=== PATIENT | female | born 1970 | race Caucasian/White ===

== ENCOUNTER 2017-11-21 06:09 | Emergency (ER) | payer OTHER ==
[~2017-11-21] VITALS: Ht 165.1 cm; Wt 81.8 kg
[2017-11-21 06:16] VITALS: BP 161/96
[2017-11-21] MEDS ORDERED: IBUPROFEN 600 MG TAB PO ONE (07:45)
[2017-11-21] MEDS ORDERED: TETANUS-DIPTH-ACEL PERTUSSIS 0.5ML SYRG IM ONE (07:45)
== END 2017-11-21 08:14 | disposition home or self-care (01) ==
LOC: ER 06:15
DX: S01.01XA Laceration without foreign body of scalp, initial encounter (principal); W20.8XXA Other cause of strike by thrown, projected or falling object, initial encounter; Y93.B9 Activity, other involving muscle strengthening exercises; Y92.39 Other specified sports and athletic area as the place of occurrence of the external cause; Y99.8 Other external cause status
CPT/HCPCS: 12001; 90471; 90715

== ENCOUNTER 2017-11-30 07:29 | Emergency (ER) | payer OTHER ==
[~2017-11-30] VITALS: Ht 167.6 cm; Wt 79.4 kg
[2017-11-30 07:45] VITALS: BP 152/80
== END 2017-11-30 08:01 | disposition home or self-care (01) ==
LOC: ER 07:31
DX: S01.01XD Laceration without foreign body of scalp, subsequent encounter (principal); Z48.02 Encounter for removal of sutures